=== PATIENT | female | born 1955 | race Caucasian/White ===

== ENCOUNTER 2025-09-16 07:57 | Emergency (ER) | payer MEDICARE, OTHER, SELFPAY ==
[2025-09-16 08:05] VITALS: BP 196/97
[2025-09-16 08:29] VITALS: BP 186/87
[2025-09-16 09:00] VITALS: BP 172/85
[2025-09-16] MEDS: NSS 1000 IV (09:08)
[2025-09-16 09:12] VITALS: BMI 30.2
[2025-09-16 09:26] LABS: Hematocrit 37.8 % (37.0-47.0); Hemoglobin 12.7 g/dL (12.0-16.0); Mean Corp Hgb Conc. 33.6 g/dL (33.0-37.0); Mean Corpuscular Volume 88.1 fL (81.0-99.0); Nucleated Red Blood Cells % 0 %; Platelet Count 243 10^3/uL (130-400); Red Cell Dist. Width 13.7 % (11.5-14.5)
--- NOTE | 2025-09-16 09:40 | ED.GENMED ---
History of Present Illness
General
Chief Complaint: Heart Rate Problem
Source: patient
Exam Limitations: none
Time Seen by Provider: 09/16/25 08:42
Nursing documentation reviewed up to this point in time: agreed with
History of Present Illness
History of Present Illness:
70-year-old female with a past medical history as noted presents to the ER for evaluation of palpitations. Patient reports onset of symptoms this morning around 6:30�7 AM while at rest�she says that she woke up with palpitations and racing heart.
She says she did not have any chest pain or shortness of breath. She says just very mild dizziness. She says that she has had similar symptoms in the past attributable to GERD or dehydration and so she tried drinking some water but this did not
seem to be helping. She says that she checked her heart rate using a pulse ox at home and it was up to 140. Symptoms did not seem to be going away so she decided to come to the ER to be evaluated. Fortunately after arrival in the ER her symptoms
resolved and she now is asymptomatic. She does note that she was drinking a lot of wine and eating salty cheese last night and wonders if this could contribute to her symptoms. She does note a family history of dysrhythmia in her brother including
heart rate and in one of her brothers at age 40. She denies any personal history of heart disease aside from mitral valve prolapse.
Past History
Past History
ED Past Medical History: Asthma and Hyperthyroidism
ED Past Surgical History: Tonsilectomy
Social History
Tobacco: Non-smoker
Alcohol: Occasional
Personal:
Living: with family
Employment: Employed
Review of Systems
Review of Systems
All Other Systems: ROS reviewed and negative except as documented in HPI and ROS
Respiratory: Denies trouble breathing
Cardiac: Reports palpitations; Denies chest pain or syncope
ABD/GI: Denies abdominal pain, nausea or vomiting
: Denies flank pain
Musculoskeletal: Denies neck pain or back pain
Neurological: Reports dizzy; Denies headache
Phy Exam
Physical Exam
Physical Exam:
General: Awake, alert, oriented x3; no acute distress
Head: Normocephalic, atraumatic
Eyes: Conjunctiva normal, sclera anicteric
Throat: Airway intact, slightly dry mucous membranes
Neck: Trachea midline, supple without meningismus, no JVD
Lungs: Clear to auscultation bilaterally, no wheezing, rales, rhonchi
Heart: Regular rate and rhythm, no murmurs, gallops, or rubs appreciated
Neuro: Grossly intact
Skin: Warm and dry
Extremities: No edema in extremities, equal pulses in all extremities
Scores
Heart Failure Risk
Heart Failure Risk Score: Not Applicable
Heart Score for Chest Pain Patients
STEMI patient?: Not applicable
Withdrawal Assessment of Alcohol
Withdrawal Assessment Completed?: Not applicable
Course
Orders/Labs/Results
Orders:
Orders
09/16/25 08:54
Electrocardiogram (*1) Urgent
Reason for Study: Palpitations
EKG- Treatment ONCE
09/16/25 08:55
0.9% Sodium Chloride 1000 ml [Nss] 1,000 ml IV BOLUS
09/16/25 09:05
Complete Blood Count/With Diff Urgent
Comprehensive Metabolic Panel Urgent
TSH Reflex To Free T4 Urgent
Comment: ADDON
09/16/25 09:36
Add On- LAB Urgent
Tests Added?: TSH with reflex to T4
Abnormal Lab Results
09/16/25
09:05
MPV 11.0 H fL
(7.4-10.4)
Immature Gran % 0.7 H %
(0-0.5)
Monocytes % 9.9 H %
(1.7-9.3)
Chloride 109 H mmol/L
(98-107)
Total Bilirubin 0.1 L mg/dl
(0.2-1.3)
09/16/25 09:05
09/16/25 09:05
Vital Signs
Initial and Last Documented VS:
Initial Vital Signs
Pulse Resp BP Pulse Ox
87 20 196/97 96
09/16/25 08:05 09/16/25 08:05 09/16/25 08:05 09/16/25 08:05
Last Documented Vital Signs
Temp Pulse Resp BP Pulse Ox
36.7 C 78 17 186/87 95
09/16/25 08:08 09/16/25 08:45 09/16/25 08:45 09/16/25 08:29 09/16/25 09:46
MDM/Problems Addressed
Differential Diagnosis Includes:
Dysrhythmia (A-fib, SVT, etc), dehydration, electrolyte derangement, anxiety
MDM/Problems Addressed:
70-year-old female presents to the ER for evaluation after episode of palpitations and tachycardia. Symptoms have resolved, currently asymptomatic. She is hypertensive here but otherwise normal vitals�she does note heavy salt intake last night
likely driving hypertension. EKG here shows sinus rhythm, no delta wave, no Brugada, no ectopy. Plan to check basic labs and TFTs. Will monitor on telemetry. Patient would likely ultimately need cardiology evaluation/Holter monitoring to rule
out arrhythmia. She does appear clinically dehydrated which certainly could contribute to tachycardia�will provide some IV fluids while pending workup.
Labs reviewed: CBC and CMP no clinically significant abnormalities. Clinical reassessment patient remains asymptomatic, has been in sinus rhythm throughout ER stay. No clear indication for hospitalization at this point. She should see cardiology
for further workup to rule out arrhythmia and I advised her to return immediately if she has return of symptoms to get an EKG as soon as possible. She indicated understanding. All questions answered.
Acute Exacerbation and/or Progression of Chronic Illness:
Acutely hypertensive without signs or symptoms of hypertensive crisis�no emergent antihypertensives indicated at this point
Acute Exacerbation and/or Progression of Chronic Illness: HTN
*Pulse Oximetry
SaO2: 95
Oxygen Mode of Delivery: Room air
Patient hypoxic: no (95%)
*EKG
Interpreted by ED Provider?: Yes
Heart Rate: 79
Rate: normal
Rhythm: sinus
Roe: left axis deviation
QRS Pattern: left vent hypertrophy
Ischemia: no ischemia
*Critical Care Note
Total Time (30-74mins, 75-104mins- exclusive of procedures): Not Applicable
Data Reviewed
Source: patient and spouse
ED Attending Note
-
Portions of this chart may have been created with voice recognition software.� Occasional wrong word or��sound alike� substitutions may have occurred due to the inherent limitations of voice recognition software.
Discharge Plan
Departure
Patient Disposition: Home (Routine Discharge)
Date of Disposition: 09/16/25
Time of Disposition: 12:03
Patient with high blood pressure during this ER visit?: Yes
Discharge Problem:
Palpitations
Instructions: Palpitations (DC)
Prescriptions:
No Action
fluticasone propionate 16 GRAM spray,suspension
1 spray intranasal DAILY
Ascorbic [employer]
1 cap PO DAILY
Desicated Thyroid Compounded
145 mg PO DAILY
prednisone 50 mg tablet
50 mg PO DAILY Qty: 5 0RF
Referrals:
Enrrique Merrill MD [Family Provider, Internal Medicine]
Lyly Flores MD [Active, Cardiology] - Call in 1-3 days for appt
Activity Restrictions/Additional Instructions:
Thank you for visiting the Emergency Department at [facility].
1. Please schedule a follow up appointment as directed. Call first thing tomorrow morning to make an appointment.
2. If indicated, please take your medications as instructed and indicated on discharge paperwork.
3. If any of your symptoms do not improve, or persist, or become more severe within 6-12 hours, please return to the emergency department for further care.
4. Please return to the emergency department if you develop a headache, neck pain/stiffness, fever greater than 100.4F, chest pain, shortness of breath, persistent nausea, vomiting, slurred speech, difficulty walking, numbness/tingling, weakness,
signs of infection or any other symptoms that are worrisome to you.
Please call [phone] if you have any questions.
Interventions
Interventions:
*General Assessment Last Done: 09/16/25 09:26
*Neglect/Abuse Screening Last Done: 09/16/25 09:26
*ED COVID-19 Vaccine History Last Done: 09/16/25 09:26
*ED Influenza Vaccine History Last Done: 09/16/25 09:26
[facility] Fall Risk Assessment Tool Last Done: 09/16/25 09:26
*Risk Screen - Suicide (C-SSRS) Last Done: 09/16/25 08:08
ED- Cardiac Assessment Last Done: 09/16/25 09:26
ED- Pulmonary Assessment Last Done: 09/16/25 09:26
Discharge Date and Time
Print Language: [id number]
[2025-09-16 09:41] LABS: ALT (SGPT) 29 U/L (0-35); AST (SGOT) 26 U/L (14-36); Albumin 4.5 g/dl (3.5-5.0); Alkaline Phosphatase 94 U/L (38-126); Blood Urea Nitrogen 13 mg/dl (7-17); Calcium 9.2 mg/dl (8.4-10.2); Carbon Dioxide 23 mmol/L (22-30); Chloride 109 mmol/L (98-107); Estimated Creatinine Clearance 87 ml/min; Glucose 83 mg/dl (70-99); Potassium 4.2 mmol/L (3.5-5.1); Sodium 140 mmol/L (135-145); Total Protein 6.8 g/dl (6.3-8.2); eGFR > 60.00
[2025-09-16 10:00] VITALS: BP 157/73
== END 2025-09-16 13:05 | disposition home or self-care (01) ==
LOC: EMR 07:57
PROVIDERS: EMERGENCY PHYSICIAN Emergency Medicine; FAMILY PHYSICIAN Internal Medicine Geriatric Medicine
DX: R00.2 Palpitations (principal); I10 Essential (primary) hypertension; J45.909 Unspecified asthma, uncomplicated
CPT/HCPCS: 96360; 99284; 80053; 84443; 85025; 93005